=== PATIENT | female | born 1985 | race Caucasian/White ===

== ENCOUNTER 2016-07-08 17:06 | Emergency (ER) | payer OTHER ==
--- NOTE | 2016-07-08 19:07 | ED ---
Skin/Abscess/FB HPI - General Chief complaint: Skin/Abscess/Foreign Body Stated complaint: rash Time Seen by Provider: 07/08/16 18:25 Source: patient, RN notes reviewed Mode of arrival: ambulatory Limitations: no limitations - History of Present Illness Initial comments: Patient is a 30-year-old female presents to the emergency room for evaluation of rash. Patient states she stated over a friend's house about 3 days ago and afterwards noticed that she had multiple bites all over her arms, abdomen. Patient states the bites are very itchy. Patient states been taking Benadryl with little relief of symptoms. Patient denies any new detergents, body lotions , shampoos, perfumes. Patient denies any new animals or plants in the house. Patient does states she was cleaning out her garage this weekend and may have been exposed to fleas. Patient states that her 2 daughters also the same rash. Patient denies fevers or chills. Patient denies headache or dizziness. Patient denies chest pain, shortness breath, nausea, vomiting. Patient states she is up-to-date on all her immunizations. - Related Data Home Medications Medication Instructions Recorded Confirmed Albuterol Inhaler [Ventolin Hfa 1 - 2 puff INHALATION RT-QID PRN 07/08/16 Inhaler] Previous Rx's Medication Instructions Recorded Hydrocortisone Cream 1 applic TOPICAL TID PRN #1 tube 07/08/16 [Hydrocortisone 1% Cream] Allergies Allergy/AdvReac Type Severity Reaction Status Date / Time No Known Allergies Allergy Verified 07/08/16 18:54 Review of Systems ROS Statement: Those systems with pertinent positive or pertinent negative responses have been documented in the HPI. ROS Other: All systems not noted in ROS Statement are negative. Past Medical History Past Medical History: Asthma History of Any Multi-Drug Resistant Organisms: None Reported Past Surgical History: Section, Tubal Ligation Additional Past Surgical History / Comment(s): Facial Reconstructive Surgery Past Psychological History: No Psychological Hx Reported Smoking Status: Current some day smoker Past Alcohol Use History: None Reported, Occasional, Rare Past Drug Use History: None Reported General Exam - General Exam Comments Initial Comments: Sitting in exam room, no acute distress. Limitations: no limitations General appearance: alert, in no apparent distress Head exam: Present: atraumatic, normocephalic, normal inspection Eye exam: Present: normal appearance ENT exam: Present: normal exam Neck exam: Present: normal inspection Respiratory exam: Present: normal lung sounds bilaterally. Absent: respiratory distress Cardiovascular Exam: Present: regular rate, normal rhythm, normal heart sounds Extremities exam: Present: normal inspection Back exam: Present: normal inspection Neurological exam: Present: alert, oriented X3, CN II-XII intact, normal gait Psychiatric exam: Present: normal affect, normal mood Skin exam: Present: warm, dry, intact, other (Erythematous papular lesions on bilateral arms and abdomen.) Course Vital Signs 07/08/16 17:43 Temperature 98.2 F Pulse Rate 82 Respiratory 20 Rate Blood Pressure 143/70 O2 Sat by Pulse 97 Oximetry Medical Decision Making - Medical Decision Making Patient is a 30-year-old female presents emergency room for evaluation of rash. Rash consistent with either bed bugs or flea bites. Advised patient to continue taking Benadryl as needed. Will send patient home with hydrocortisone cream as needed for discomfort. Advised patient to return for worsening symptoms. Patient states she understands everything that was discussed with her. Return parameters discussed. Case discussed with Dr. Jaime. Disposition Clinical Impression: Insect bites Disposition: HOME SELF-CARE Condition: Good Instructions: Bed Bugs (ED) Additional Instructions: Benadryl every 4-6 hours for discomfort. Clean all sheets, bedding, clothes and dry in high heat. Apply cream as needed for itching. Please follow up with primary care provider in 1-2 days. If any new symptom arises or symptoms worsen , return to ER as soon as possible. Prescriptions: Hydrocortisone Cream [Hydrocortisone 1% Cream] 1 applic TOPICAL TID PRN #1 tube PRN Reason: Itching Referrals: None,Stated [Primary Care Provider] - 1-2 days Time of Disposition: 19:04
[2016-07-08 19:20] VITALS: BP 131/77; PULSE 71; RESP 18; TEMP 97.8
== END 2016-07-08 19:22 | disposition home or self-care (01) ==
LOC: EC 17:06
DX: S40.862A Insect bite (nonvenomous) of left upper arm, initial encounter (principal); S40.861A Insect bite (nonvenomous) of right upper arm, initial encounter; S30.861A Insect bite (nonvenomous) of abdominal wall, initial encounter; W57.XXXA Bitten or stung by nonvenomous insect and other nonvenomous arthropods, initial encounter; F17.200 Nicotine dependence, unspecified, uncomplicated
CPT/HCPCS: 99282

== ENCOUNTER → 2017-06-09 | Outpatient (CLI) | payer OTHER ==
[2017-06-09 09:13] LABS: HCT 42.9 % (34.0-46.0); HGB 14.4 gm/dL (11.4-16.0); MCH 29.1 pg (25.0-35.0); MCHC 33.7 g/dL (31.0-37.0); MCV 86.4 fL (80.0-100.0); Mean Platelet Volume 7.5; Platelet Count 242 k/uL (150-450); RBC 4.97 m/uL (3.80-5.40); RDW 12.7 % (11.5-15.5); WBC 6.6 k/uL (3.8-10.6)
[2017-06-09 09:27] LABS: Appearance,Urine Cloudy (Clear); Bilirubin,Urine Negative (Negative); Blood,Urine Negative (Negative); Color,Urine Yellow; Glucose,Urine (UA) 4+ (Negative); Ketones,Urine Negative (Negative); Leukocyte Esterase,Urine Negative (Negative); Mucus,Urine Moderate /hpf; Nitrite,Urine Negative (Negative); PH, Urine 5.5 (5.0-8.0); Protein,Urine Trace (Negative); RBC,Urine <1 /hpf (0-5); Squamous Epithelial Cell,Urine 5 /hpf (0-4); Urobilinogen,Urine <2.0 mg/dL (<2.0); WBC,Urine 1 /hpf (0-5)
[2017-06-09 09:40] LABS: ALT 43 U/L (9-52); AST 24 U/L (14-36); Alkaline Phosphatase 123 U/L (38-126); Anion Gap 9 mmol/L; Blood Urea Nitrogen 14 mg/dL (7-17); Calcium 9.3 mg/dL (8.4-10.2); Carbon Dioxide 26 mmol/L (22-30); Chloride 104 mmol/L (98-107); Cholesterol 244 mg/dL (<200); Glucose 172 mg/dL (74-99); HDL Cholesterol 38 mg/dL (40-60); LDL Cholesterol,Calculated 141 mg/dL (0-99); Potassium 4.5 mmol/L (3.5-5.1); Sodium 139 mmol/L (137-145); Total Bilirubin 0.4 mg/dL (0.2-1.3); Total Protein 6.9 g/dL (6.3-8.2); Triglycerides 324 mg/dL (<150)
[2017-06-09 09:56] LABS: T4, Free (Free Thyroxine) 1.28 ng/dL (0.78-2.19)
== END | disposition home or self-care (01) ==
LOC: LABWHC1 08:48
PROVIDERS: ATTEND Internal Medicine
DX: Z00.00 Encounter for general adult medical examination without abnormal findings (principal); J44.9 Chronic obstructive pulmonary disease, unspecified; M54.5 Low back pain; I11.9 Hypertensive heart disease without heart failure; R35.0 Frequency of micturition
CPT/HCPCS: 36415; 80053; 80061; 81001; 84439; 84443; 85027

== ENCOUNTER → 2017-06-15 | Outpatient (CLI) | payer OTHER ==
--- NOTE | 2017-06-16 08:17 | XR ---
EXAMINATION TYPE: XR chest 2V DATE OF EXAM: 06/15/2017 COMPARISON: 05/08/2015 HISTORY: Chronic chest pain TECHNIQUE: Frontal and lateral views of the chest are obtained. FINDINGS: There is no focal air space opacity, pleural effusion, or pneumothorax seen. The cardiac silhouette size is within normal limits. The osseous structures are intact. IMPRESSION: No acute cardiopulmonary process.
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
== END | disposition home or self-care (01) ==
LOC: RADXRMAIN 16:26
PROVIDERS: ATTEND Internal Medicine
DX: J44.9 Chronic obstructive pulmonary disease, unspecified (principal); M51.36 Other intervertebral disc degeneration, lumbar region; M43.17 Spondylolisthesis, lumbosacral region; I11.9 Hypertensive heart disease without heart failure; R35.0 Frequency of micturition
CPT/HCPCS: 71046; 72110

== ENCOUNTER → 2017-06-24 | Outpatient (CLI) | payer OTHER ==
[2017-06-24 11:29] VITALS: BP 144/100; PULSE 78; TEMP 98.9
[2017-06-24 12:00] VITALS: BMI 42.3
--- NOTE | 2017-06-24 12:20 | P.HPOB ---
History of Present Illness H&P Date: 06/24/17 Chief Complaint: The patient is here for her routine gynecologic exam. This is a 31-year-old within LMP of 05/27/2017. She is status post tubal ligation. The patient states that has been about 5 years since her last pelvic exam. She has had a long history of intermittent pelvic pains. These pains can be during her menses as well as between menses. The pain is most commonly on her left side. She has also noticed some pains with sexual intercourse on the left side as well. She describes the pains as sharp, burning and sometimes aching. They feel like pains that she experienced in the past when she had a ruptured ovarian cyst. The pains are not noticed every day. When she does experience them they can last for minutes to up to an hour. She has noticed the pains since around the time of her tubal ligation but there have been more frequent during the past year. Review of Systems She believes she has gained about 15 pounds over the last year. She denies cardiac or G.I. problems. Respiratory: occasional asthma or allergies symptoms. Past Medical History Past Medical History: Asthma, Diabetes Mellitus (Type II diabetes), Hyperlipidemia History of Any Multi-Drug Resistant Organisms: None Reported Past Surgical History: Section (Times 2), Tubal Ligation (Done with her 2nd .) Additional Past Surgical History / Comment(s): Facial Reconstructive Surgery, colonoscopy 2015. Past Psychological History: No Psychological Hx Reported Smoking Status: Current every day smoker (Half a pack per day) Past Alcohol Use History: Occasional (About 3 drinks per week) Past Drug Use History: None Reported, Marijuana (She has had a medical marijuana card in the past.) - Past Family History Father Family Medical History: Diabetes Mellitus Additional Family Medical History / Comment(s): A great aunt had breast cancer. Great grandmother had breast and cervical cancer. Medications and Allergies Home Medications Medication Instructions Recorded Confirmed Type Albuterol Inhaler [Ventolin Hfa 1 - 2 puff INHALATION RT-QID PRN 07/08/16 History Inhaler] Hydrocortisone Cream 1 applic TOPICAL TID PRN #1 tube 07/08/16 06/24/17 Rx [Hydrocortisone 1% Cream] metFORMIN HCL ER [Glucophage Xr] tab PO DAILY 06/24/17 History Allergies Allergy/AdvReac Type Severity Reaction Status Date / Time No Known Allergies Allergy Verified 06/24/17 11:30 Exam - Vital Signs Vital signs: Vital Signs Temp Pulse BP 06/24/17 11:26 98.9 F 78 144/100 Intake and Output 06/23/17 06/24/17 06/24/17 22:59 06:59 14:59 Other: Weight 126.099 kg Height 5'8", BMI 42.3, repeat blood pressure 132/78 with a large blood pressure cuff.. This is a well-developed well-nourished white female who is alert and oriented times 3 in no acute distress. HEENT: Within normal limits. NECK: Supple without mass or thyromegaly. CHEST AND LUNGS: Clear to auscultation. HEART: Regular rate and rhythm. BREASTS: Are without mass or discharge. AXILLARY EXAM: Negative for adenopathy. BACK: Negative for CVA tenderness. ABDOMEN: Soft, obese, nontender, without palpable masses. PELVIC EXAM: Normal external genitalia. Cervix and vagina appear normal. There is no unusual discharge. There is no evidence of prolapse. The uterus is midposition, nongravid size and nontender. There are no palpable adnexal masses or tenderness. RECTAL EXAM: negative for mass or tenderness and is negative for occult blood. EXTREMITIES: Nontender. IMPRESSION: 1. 31-year-old female with normal gynecologic exam with status post tubal ligation. 2. Chronic intermittent left pelvic pains which have become more frequent. There are no significant physical findings at this time. Differential diagnosis will include ovarian cyst, endometriosis, hydrosalpinx, pelvic adhesions, and non-gynecologic etiology. PLAN: 1. Pap smear was performed. 2. Self breast examination was discussed. 3. Pelvic ultrasound will be scheduled. She will try to keep track of her pains and see if it is associated with any types of activities. Consider referral to Dr. Kapoor, her previous [employer], if she continues to have the pelvic pains. 4. We have discussed her elevated blood pressure. She states it was elevated at Dr. Bonner's office. I have recommended that she check her own blood pressure on a regular basis and follow-up with Dr. Bonner for blood pressure elevations. 5. She will return in one year and PRN.
== END | disposition home or self-care (01) ==
LOC: WWCWWP 10:43
PROVIDERS: ATTEND Obstetrics & Gynecology
DX: Z53.9 Procedure and treatment not carried out, unspecified reason (principal)

== ENCOUNTER → 2017-06-29 | Outpatient (CLI) | payer OTHER | END | disposition home or self-care (01) | LOC: LABWHC1 10:25 | PROVIDERS: ATTEND Internal Medicine | DX: E11.9 Type 2 diabetes mellitus without complications (principal) | CPT/HCPCS: 36415; 82043; 82570; 82947; 83036 ==

== ENCOUNTER → 2017-06-30 | Outpatient (CLI) | payer OTHER ==
--- NOTE | 2017-06-30 15:47 | US ---
EXAMINATION TYPE: US pelvis complete transvag DATE OF EXAM: 06/30/2017 COMPARISON: US 2012 CLINICAL HISTORY: R10.2 Pelvic Pain,N94.6 Dysmenorrhea,N94.1 Dyspare. TECHNIQUE: . Transabdominal sonographic images of the pelvis were acquired. Transvaginal sonographi c images were medically necessary to better assess the following anatomy: Uterus Date of LMP: 06/26/2017 EXAM MEASUREMENTS: Uterus: 7.3 x 3.4 x 4.5 cm Endometrial Stripe: 0.4 cm Right Ovary: 2.7 x 1.6 x 2.1 cm Left Ovary: 2.2 x 1.7 x 2.0 cm 1. Uterus: Anteverted wnl as visualized. Difficult to penetrate transvaginally 2. Endometrium: wnl 3. Right Ovary: wnl 4. Left Ovary: wnl 5. Bilateral Adnexa: wnl 6. Posterior cul-de-sac: wnl Incidental note is made of a solitary anechoic nabothian cysts. IMPRESSION: Unremarkable exam with normal endometrial thickness and no uterine leiomyomas visualized.
--- NOTE | 2017-07-01 09:56 | P.PN ---
Progress Note - Text Progress Note Date: 07/01/17 The pelvic ultrasound on 06/30/2017 was unremarkable. I have notified the patient of this by phone. I have recommended that she consider seeing somebody for laparoscopy if she continues to have the pain. She will hold off on this at this time but will call if she feels that it is getting worse.
== END | disposition home or self-care (01) ==
LOC: RADUSWWP 14:58
PROVIDERS: ATTEND Obstetrics & Gynecology
DX: N94.6 Dysmenorrhea, unspecified (principal); N94.10 Unspecified dyspareunia
CPT/HCPCS: 76830; 76856

== ENCOUNTER → 2017-10-31 | Outpatient (CLI) | payer OTHER | END | disposition home or self-care (01) | LOC: LABWHC1 08:35 | PROVIDERS: ATTEND Internal Medicine | DX: E11.9 Type 2 diabetes mellitus without complications (principal) | CPT/HCPCS: 36415; 82947; 83036 ==

== ENCOUNTER → 2017-12-30 | Outpatient (CLI) | payer OTHER ==
[2017-12-30 11:15] LABS: Anion Gap 9 mmol/L; Blood Urea Nitrogen 13 mg/dL (7-17); Calcium 9.2 mg/dL (8.4-10.2); Carbon Dioxide 24 mmol/L (22-30); Chloride 107 mmol/L (98-107); Cholesterol 213 mg/dL (<200); Glucose 133 mg/dL (74-99); HDL Cholesterol 31 mg/dL (40-60); LDL Cholesterol,Calculated 147 mg/dL (0-99); Potassium 4.5 mmol/L (3.5-5.1); Sodium 140 mmol/L (137-145); Triglycerides 176 mg/dL (<150)
== END | disposition home or self-care (01) ==
LOC: LABWHC1 09:00
PROVIDERS: ATTEND Internal Medicine
DX: E78.2 Mixed hyperlipidemia (principal); I11.9 Hypertensive heart disease without heart failure
CPT/HCPCS: 36415; 80048; 80061

== ENCOUNTER → 2018-12-22 | Outpatient (CLI) | payer OTHER ==
--- NOTE | 2018-12-22 10:02 | US ---
EXAMINATION TYPE: US abdomen limited DATE OF EXAM: 12/22/2018 COMPARISON: NONE CLINICAL HISTORY: R10.12 LUQ pain K40.90 L inguinal hernia. Lump LUQ area. Scanned LUQ area of concern. No abnormalities seen. Limited ultrasound scanning. IMPRESSION: No discrete abnormality on this limited exam.
== END ==
LOC: RADUSMAIN 08:17
PROVIDERS: ATTEND Family Medicine
DX: K40.90 Unilateral inguinal hernia, without obstruction or gangrene, not specified as recurrent (principal); R10.12 Left upper quadrant pain
CPT/HCPCS: 76705